=== PATIENT | male | born 1960 | race African-American/Black ===

== ENCOUNTER 2023-06-08 13:14 | Inpatient (IN) | payer MEDICAID ==
[~2023-06-08] VITALS: Ht 175.3 cm; Wt 87.1 kg
[2023-06-08] VITALS (9 sets, daily range): BP systolic 125–181; BP diastolic 51–92; PULSE 80–114; RESP 16–24; TEMP 98.3–98.4; O2SAT 97–100
[~2023-06-08 13:14] MED LIST: FURO-572 PO
[2023-06-08] MEDS ORDERED: LORazepam 2 MG/ML VIAL ONE (13:51)
[2023-06-08] MEDS: LORazepam 2 MG/ML VIAL IM ONE (14:10)
[2023-06-08] MEDS: NACL 0.9% 1,000 ML IV ONE ×2 (15:01→15:50)
[2023-06-08 15:10] LABS: HEMOGLOBIN 13.1 g/dL (12.0-18.0); MEAN CORPUSCULAR HEMOGLOBIN 31 pg (27-31); MEAN CORPUSCULAR HGB CONC 33 g/dL (33-37); MEAN CORPUSCULAR VOLUME 93.5 fL (80-94); PLATELET COUNT (AUTO) 309 K/uL (140-450); RED BLOOD CELL COUNT(AUTO) 4.28 MIL/uL (4.20-6.10); RED CELL DISTRIBUTION WIDTH 15.7 % (11.6-13.7); WHITE BLOOD COUNT (AUTO) 15.1 K/uL (4.8-10.8)
[2023-06-08] MEDS: LORazepam 2 MG/ML VIAL IVP ONE ×2 (15:19→15:43)
[2023-06-08] MEDS: ACETAMINOPHEN 650 MG SUPP RC ONE (15:22)
[2023-06-08] MEDS ORDERED: PROPOFOL 1000 MG/100 ML PREMIX 100 ML IV ONE (15:41)
[2023-06-08 15:44] LABS: ANION GAP 13.9 (8-16); CARBON DIOXIDE 27.7 mmol/L (21-32); CREATININE 1.4 mg/dL (0.6-1.3); POTASSIUM 5.6 mmol/L (3.5-5.1)
[2023-06-08] MEDS ORDERED: INTUBATION KIT MC ONE (15:45)
[2023-06-08] MEDS ORDERED: ETOMIDATE 20 MG/10 ML VIAL IVP ONE (15:48)
[2023-06-08] MEDS ORDERED: ROCURONIUM 50 MG/5 ML VIAL IV ONE (15:48)
[2023-06-08] MEDS: PROPOFOL 1000 MG/100 ML PREMIX 100 ML IV ONE (16:00)
[2023-06-08 16:01] LABS: LYMPHOCYTES % (MANUAL) 3 % (20-46); MONOCYTES % (MANUAL) 2 % (5-12)
[2023-06-08 16:02] LABS: PLATELET ESTIMATE ADEQUATE
[2023-06-08 16:11] LABS: FREE T4 (FREE THYROXINE) 0.36 ng/dL (0.76-1.46); THYROID STIMULATING HORMONE 25.08 uIU/mL (0.34-3.74)
[2023-06-08] MEDS: VANCOMYCIN 1,000 MG in DEXTROSE 5% 250 ML IV ONE (17:00)
[2023-06-08 17:09] LABS: ALANINE AMINOTRANSFERASE 36 U/L (12-78); ALBUMIN 3.8 g/dL (3.4-5.0); ALCOHOL, BLOOD < 3 mg/dL (<10); ALKALINE PHOSPHATASE 55 U/L (50-136); ASPARTATE AMINOTRANSFERASE 35 U/L (15-37); BILIRUBIN,DIRECT 0.1 mg/dL (0.0-0.3); CREATINE KINASE, TOTAL 402 U/L (39-308); TOTAL BILIRUBIN 0.5 mg/dL (0.0-1.0); TOTAL PROTEIN, SERUM 7.9 g/dL (6.4-8.2)
[2023-06-08 17:11] LABS: SALICYLATE < 2.8 mg/dL (2.8-20.0)
[2023-06-08 17:12] LABS: ACETAMINOPHEN < 0.5 ug/ml (10-30)
[2023-06-08 17:31] LABS: APPEARANCE,URINE CLEAR (CLEAR); BILIRUBIN,URINE NEGATIVE (NEGATIVE); BLOOD, URINE TRACE-I (NEGATIVE); COLOR,URINE YELLOW (YELLOW); LEUKOCYTE ESTERASE ,URINE NEGATIVE (NEGATIVE); NITRITE, URINE NEGATIVE (NEGATIVE); PROTEIN,URINE TRACE (NEGATIVE); UGLUCOSE 1+ (NEGATIVE); UROBILINOGEN,URINE 0.2 EU/dL (0.2 - 1)
[2023-06-08 17:38] LABS: AMPHETAMINE, URINE NEGATIVE ng/ml (NEG <=1000); BARBITURATE, URINE NEGATIVE ng/ml (NEG <=200); BENZODIAZEPINE, URINE NEGATIVE ng/mL (NEG <=200); CANNABINOID, URINE NEGATIVE ng/mL (NEG <=50); COCAINE, URINE NEGATIVE ng/mL (NEG <=300); OPIATE, URINE NEGATIVE ng/mL (NEG <=2000); PHENCYCLIDINE SCREEN,URINE NEGATIVE ng/mL (NEG <=25)
[2023-06-08 17:44] LABS: BACTERIA,URINE None Seen /HPF (None Seen); MUCUS,URINE None Seen /LPF (None Seen); RBC,URINE 0-5 /HPF (0-5); SQUAMOUS EPITHELIAL CELL,UR 0-3 (FEW) /LPF (0-3 (FEW)); TRICHOMONAS,URINE None Seen /HPF (None Seen); WBC,URINE 0-5 /HPF (0-5); YEAST,URINE None Seen /HPF (None Seen)
[2023-06-08] MEDS: ROCURONIUM 50 MG/5 ML VIAL IV ONE (18:07)
[2023-06-08] MEDS: ETOMIDATE 20 MG/10 ML VIAL IVP ONE (18:08)
[2023-06-08] MEDS ORDERED: ONDANSETRON 4 MG/2 ML VIAL IVP PRN (18:25)
[2023-06-08] MEDS ORDERED: HYDROcodone/APAP 5/325 MG 1 TAB TAB PO PRN (18:25)
[2023-06-08] MEDS ORDERED: VANCOMYCIN PER PHARMACY MC SCH (18:30)
[2023-06-08] MEDS ORDERED: CALCIUM GLUCONATE 10% 1,000 MG in NACL 0.9% 50 ML IV SCH (18:35)
[2023-06-08] MEDS ORDERED: cefTRIAXone 1,000 MG VIAL ONE (18:40)
[2023-06-08] MEDS ORDERED: CALCIUM GLUC 1 GM/50 mL NS BAG 50 ML IV SCH (18:40)
[2023-06-08] MEDS ORDERED: VANCOMYCIN 1,000 MG VIAL ONE (18:53)
[2023-06-08] MEDS: NACL 0.9% 1,000 ML IV SCH (20:45)
[2023-06-08 20:54] LABS: BLOOD GAS PH 7.419 (7.35-7.45)
[2023-06-08 20:55] LABS: BLOOD GAS BASE EXCESS -1.1 mmol/L (-2.0-2.0); BLOOD GAS O2 SAT% 99.3 % (92.0-98.5); BLOOD GAS PCO2 36.4 mmHg (35-45); BLOOD GAS PO2 268.8 mmHg (75-100)
[2023-06-09] VITALS (32 sets, daily range): BP systolic 76–162; BP diastolic 42–113; PULSE 69–113; RESP 16–23; TEMP 98–100.2; O2SAT 97–100
[2023-06-09] MEDS: PIPERACILLIN/TAZOBACTAM 3.375 GM in DEXTROSE 5% 50 ML IV SCH (01:21)
[2023-06-09 05:52] LABS: ANION GAP 15.7 (8-16); CALCIUM 11.4 mg/dL (8.5-10.1); CARBON DIOXIDE 25.2 mmol/L (21-32); CREATININE 1.2 mg/dL (0.6-1.3); POTASSIUM 4.9 mmol/L (3.5-5.1); TOTAL BILIRUBIN 0.8 mg/dL (0.0-1.0); TOTAL PROTEIN, SERUM 7.2 g/dL (6.4-8.2)
[2023-06-09 06:06] LABS: BASOPHILS # (AUTO) 0.1 K/uL (0.00-0.22); BASOPHILS % (AUTO) 0.3 % (0.0-2.0); HEMATOCRIT 34.3 % (36-52); HEMOGLOBIN 11.3 g/dL (12.0-18.0); LYMPHOCYTES # (AUTO) 0.7 K/uL (2.0-11.5); LYMPHOCYTES % (AUTO) 3.6 % (20.5-51.1); MEAN CORPUSCULAR HEMOGLOBIN 30 pg (27-31); MEAN CORPUSCULAR HGB CONC 33 g/dL (33-37); MEAN CORPUSCULAR VOLUME 91.9 fL (80-94); MONOCYTES # (AUTO) 1.2 K/uL (0.8-1.0); MONOCYTES % (AUTO) 6.1 % (1.7-9.3); NEUTROPHILS # (AUTO) 17.6 K/uL (1.8-7.7); PLATELET COUNT (AUTO) 299 K/uL (140-450); RED BLOOD CELL COUNT(AUTO) 3.73 MIL/uL (4.20-6.10); RED CELL DISTRIBUTION WIDTH 15.7 % (11.6-13.7); WHITE BLOOD COUNT (AUTO) 19.5 K/uL (4.8-10.8)
[2023-06-09 06:29] LABS: MAGNESIUM 1.6 mg/dL (1.8-2.4); PHOSPHORUS 2.3 mg/dL (2.5-4.9)
[2023-06-09] MEDS: PROPOFOL 1000 MG/100 ML PREMIX 100 ML IV PRN (07:16)
[2023-06-09] MEDS: DOCUSATE 100 MG/10 ML UDC NG SCH (09:10)
[2023-06-09] MEDS: VANCOMYCIN 1,000 MG in DEXTROSE 5% 250 ML IV SCH (09:11)
[2023-06-09] MEDS ORDERED: ROCURONIUM 50 MG/5 ML VIAL IV ONE (10:12)
[2023-06-09] MEDS ORDERED: ETOMIDATE 20 MG/10 ML VIAL IVP ONE (10:12)
[2023-06-09] MEDS: cefTRIAXone 2,000 MG in DEXTROSE 5% 100 ML IV SCH (11:41)
[2023-06-09] MEDS: DEXMEDETOMIDINE HCL 400 MCG in NACL 0.9% 96 ML IV PRN (11:43)
[2023-06-09] MEDS: DEXAMETHASONE 10 MG/ML VIAL IVP SCH (11:44)
[2023-06-09 11:51] LABS: INR 1.08 (0.8-1.2); PARTIAL THROMBOPLASTIN TIME 38.6 secs (22-35.6); PROTHROMBIN TIME 11.3 secs (10.8-13.4)
[2023-06-09] MEDS: LIDOCAINE MPF 1% 0 ML ONE (12:57)
[2023-06-09] MEDS: MAG SULF 2000 MG/WATER PREMIX 50 ML IV SCH (13:08)
[2023-06-09] MEDS: LIDOCAINE MPF 1% 10 MG/ML VIAL INJ SCH (14:00)
[2023-06-09] MEDS: ACETAMINOPHEN 325 MG TAB PO PRN (15:53)
[2023-06-09] MEDS: NOREPINEPHRINE 4 MG in DEXTROSE 5% 250 ML IV PRN (17:13)
[2023-06-09 20:21] LABS: CSF GLUCOSE 38 mg/dL (40-70)
[2023-06-09 20:41] LABS: CSF PROTEIN 422.4 mg/dL (15-45)
[2023-06-09 21:05] LABS: CSF APPEARANCE TURBID (CLEAR); CSF RED BLOOD CELL COUNT 914 /cumm (0-0); CSF VOLUME 12.5 mL; CSF WHITE BLOOD CELL COUNT 732 /cumm (0-5)
[2023-06-09 21:26] LABS: CSF RED BLOOD CELL COUNT TUBE4 693 /cumm (0-0); CSF WHITE BLOOD CELL COUNT T#4 1226 /cumm (0-5)
[2023-06-09 21:27] LABS: CSF COLOR COLORLESS (COLORLESS)
[2023-06-10] VITALS (32 sets, daily range): BP systolic 84–146; BP diastolic 57–90; PULSE 66–107; RESP 13–24; TEMP 98.2–100; O2SAT 98–100
[2023-06-10 01:23] LABS: LACTIC ACID 1.7 mmol/L (0.4-2.0)
[2023-06-10] MEDS: LEVOTHYROXINE 0.05 MG TAB PO SCH (06:15)
[2023-06-10] MEDS ORDERED: LEVOTHYROXINE 0.05 MG TAB PO SCH (06:30)
[2023-06-10 09:00] LABS: ALBUMIN 2.1 g/dL (3.4-5.0); ANION GAP 12.7 (8-16); CALCIUM 10.6 mg/dL (8.5-10.1); CARBON DIOXIDE 22.8 mmol/L (21-32); CREATININE 1.2 mg/dL (0.6-1.3); POTASSIUM 4.5 mmol/L (3.5-5.1); TOTAL BILIRUBIN 0.4 mg/dL (0.0-1.0); TOTAL PROTEIN, SERUM 6.4 g/dL (6.4-8.2)
[2023-06-10] MEDS: LORazepam 2 MG/ML VIAL IVP PRN (09:33)
[2023-06-10] MEDS: LORazepam 2 MG/ML VIAL ONE ×2 (09:33→18:07)
[2023-06-10] MEDS: QUEtiapine FUMARATE 100 MG TAB NG SCH (09:52)
[2023-06-10] MEDS: PANTOPRAZOLE 40 MG INJ VIAL IVP SCH (09:52)
[2023-06-10] MEDS: QUEtiapine FUMARATE 100 MG TAB ONE (09:55)
[2023-06-10] MEDS: VANCOMYCIN 1.25GM PREMIX 250 ML IV SCH (10:00)
[2023-06-10 11:21] LABS: MAGNESIUM 2.2 mg/dL (1.8-2.4); PHOSPHORUS 2.6 mg/dL (2.5-4.9)
[2023-06-10 14:37] LABS: EOSINOPHILS % (AUTO) 0.1 % (0.0-4.0); HEMATOCRIT 33.9 % (36-52); HEMOGLOBIN 11.2 g/dL (12.0-18.0); LYMPHOCYTES # (AUTO) 0.4 K/uL (2.0-11.5); LYMPHOCYTES % (AUTO) 2.6 % (20.5-51.1); MEAN CORPUSCULAR HEMOGLOBIN 30 pg (27-31); MEAN CORPUSCULAR HGB CONC 33 g/dL (33-37); MEAN CORPUSCULAR VOLUME 91.5 fL (80-94); MONOCYTES # (AUTO) 0.6 K/uL (0.8-1.0); MONOCYTES % (AUTO) 3.2 % (1.7-9.3); NEUTROPHILS # (AUTO) 16.1 K/uL (1.8-7.7); NEUTROPHILS % (AUTO) 94.1 % (42.2-75.2); PLATELET COUNT (AUTO) 261 K/uL (140-450); RED CELL DISTRIBUTION WIDTH 15.9 % (11.6-13.7); WHITE BLOOD COUNT (AUTO) 17.1 K/uL (4.8-10.8)
[2023-06-10 14:51] LABS: ALBUMIN 2.2 g/dL (3.4-5.0); ANION GAP 12.5 (8-16); CALCIUM 10.9 mg/dL (8.5-10.1); CARBON DIOXIDE 25.1 mmol/L (21-32); CREATININE 1.3 mg/dL (0.6-1.3); MAGNESIUM 2.1 mg/dL (1.8-2.4); PHOSPHORUS 2.3 mg/dL (2.5-4.9); POTASSIUM 4.6 mmol/L (3.5-5.1); TOTAL BILIRUBIN 0.4 mg/dL (0.0-1.0); TOTAL PROTEIN, SERUM 6.6 g/dL (6.4-8.2)
[2023-06-11] VITALS (35 sets, daily range): BP systolic 96–150; BP diastolic 63–96; PULSE 57–79; RESP 13–27; TEMP 97–98.2; O2SAT 97–100
[2023-06-11 05:58] LABS: BASOPHILS % (AUTO) 0.1 % (0.0-2.0); EOSINOPHILS % (AUTO) 0.2 % (0.0-4.0); HEMATOCRIT 33.7 % (36-52); LYMPHOCYTES # (AUTO) 0.5 K/uL (2.0-11.5); LYMPHOCYTES % (AUTO) 3.6 % (20.5-51.1); MEAN CORPUSCULAR HEMOGLOBIN 30 pg (27-31); MEAN CORPUSCULAR HGB CONC 33 g/dL (33-37); MEAN CORPUSCULAR VOLUME 92.4 fL (80-94); MONOCYTES # (AUTO) 0.4 K/uL (0.8-1.0); MONOCYTES % (AUTO) 2.8 % (1.7-9.3); NEUTROPHILS # (AUTO) 13.8 K/uL (1.8-7.7); NEUTROPHILS % (AUTO) 93.3 % (42.2-75.2); PLATELET COUNT (AUTO) 271 K/uL (140-450); RED BLOOD CELL COUNT(AUTO) 3.65 MIL/uL (4.20-6.10); RED CELL DISTRIBUTION WIDTH 15.7 % (11.6-13.7); WHITE BLOOD COUNT (AUTO) 14.8 K/uL (4.8-10.8)
[2023-06-11 06:11] LABS: MAGNESIUM 2.3 mg/dL (1.8-2.4); PHOSPHORUS 2.7 mg/dL (2.5-4.9)
[2023-06-11 06:13] LABS: ANION GAP 13.7 (8-16); CARBON DIOXIDE 23.9 mmol/L (21-32); CREATININE 1.2 mg/dL (0.6-1.3); POTASSIUM 4.6 mmol/L (3.5-5.1); TOTAL BILIRUBIN 0.3 mg/dL (0.0-1.0); TOTAL PROTEIN, SERUM 6.3 g/dL (6.4-8.2)
[2023-06-11] MEDS: LORazepam 2 MG/ML VIAL ONE ×2 (08:32→11:59)
[2023-06-11] MEDS: QUEtiapine FUMARATE 100 MG TAB ONE (09:15)
[2023-06-11] MEDS: CRUSHER, PILL MC ONE (09:15)
[2023-06-11] MEDS ORDERED: DEXTROSE 50% 50 ML SYR IVP PRN (10:05)
[2023-06-11] MEDS: INSULIN LISPRO SLIDING SCALE 100 UNITS/ML VIAL SUBQ PRN (12:25)
[2023-06-11] MEDS: BLOOD GLUCOSE MONITORING 1 DEV DEV FS SCH (12:26)
[2023-06-12] VITALS (33 sets, daily range): BP systolic 112–168; BP diastolic 77–99; PULSE 50–101; RESP 14–22; TEMP 96.4–97.8; O2SAT 92–100
[2023-06-12 05:45] LABS: MAGNESIUM 2.4 mg/dL (1.8-2.4); PHOSPHORUS 2.8 mg/dL (2.5-4.9)
[2023-06-12 05:52] LABS: BASOPHILS % (AUTO) 0.2 % (0.0-2.0); HEMATOCRIT 35.8 % (36-52); HEMOGLOBIN 11.7 g/dL (12.0-18.0); LYMPHOCYTES # (AUTO) 0.5 K/uL (2.0-11.5); LYMPHOCYTES % (AUTO) 4.1 % (20.5-51.1); MEAN CORPUSCULAR HEMOGLOBIN 30 pg (27-31); MEAN CORPUSCULAR HGB CONC 33 g/dL (33-37); MEAN CORPUSCULAR VOLUME 92.8 fL (80-94); MONOCYTES # (AUTO) 0.3 K/uL (0.8-1.0); MONOCYTES % (AUTO) 2.2 % (1.7-9.3); NEUTROPHILS # (AUTO) 11.8 K/uL (1.8-7.7); NEUTROPHILS % (AUTO) 93.5 % (42.2-75.2); PLATELET COUNT (AUTO) 273 K/uL (140-450); RED BLOOD CELL COUNT(AUTO) 3.86 MIL/uL (4.20-6.10); RED CELL DISTRIBUTION WIDTH 15.3 % (11.6-13.7); WHITE BLOOD COUNT (AUTO) 12.7 K/uL (4.8-10.8)
[2023-06-12 06:02] LABS: ALBUMIN 2.1 g/dL (3.4-5.0); ANION GAP 11.8 (8-16); CALCIUM 11.7 mg/dL (8.5-10.1); CARBON DIOXIDE 24.6 mmol/L (21-32); CREATININE 1.2 mg/dL (0.6-1.3); POTASSIUM 4.4 mmol/L (3.5-5.1); TOTAL BILIRUBIN 0.2 mg/dL (0.0-1.0); TOTAL PROTEIN, SERUM 6.3 g/dL (6.4-8.2)
[2023-06-12] MEDS: NACL 0.45% 1,000 ML IV SCH (22:40)
[2023-06-13] VITALS (30 sets, daily range): BP systolic 127–169; BP diastolic 68–104; PULSE 49–104; RESP 14–22; TEMP 96.8–98.6; O2SAT 95–100
[2023-06-13 05:36] LABS: HEMATOCRIT 36.7 % (36-52); LYMPHOCYTES # (AUTO) 0.4 K/uL (2.0-11.5); MEAN CORPUSCULAR HEMOGLOBIN 30 pg (27-31); MEAN CORPUSCULAR HGB CONC 33 g/dL (33-37); MEAN CORPUSCULAR VOLUME 92.5 fL (80-94); MONOCYTES # (AUTO) 0.3 K/uL (0.8-1.0); MONOCYTES % (AUTO) 2.5 % (1.7-9.3); NEUTROPHILS # (AUTO) 11.3 K/uL (1.8-7.7); NEUTROPHILS % (AUTO) 94.5 % (42.2-75.2); PLATELET COUNT (AUTO) 280 K/uL (140-450); RED BLOOD CELL COUNT(AUTO) 3.96 MIL/uL (4.20-6.10); RED CELL DISTRIBUTION WIDTH 15.5 % (11.6-13.7)
[2023-06-13 06:20] LABS: ALBUMIN 2.1 g/dL (3.4-5.0); ANION GAP 12.2 (8-16); CARBON DIOXIDE 24.1 mmol/L (21-32); CREATININE 1.2 mg/dL (0.6-1.3); MAGNESIUM 2.6 mg/dL (1.8-2.4); PHOSPHORUS 3.2 mg/dL (2.5-4.9); POTASSIUM 4.3 mmol/L (3.5-5.1); TOTAL BILIRUBIN 0.1 mg/dL (0.0-1.0); TOTAL PROTEIN, SERUM 6.3 g/dL (6.4-8.2)
[2023-06-13] MEDS: BLOOD GLUCOSE MONITORING 1 DEV DEV FS SCH (12:38)
[2023-06-13] MEDS: DEXTROSE 5% 1,000 ML IV SCH (12:55)
[2023-06-13] MEDS: DEXT 5% / NACL 0.45% 1,000 ML IV SCH (22:28)
[2023-06-14] VITALS (26 sets, daily range): BP systolic 139–186; BP diastolic 45–104; PULSE 51–102; RESP 11–20; TEMP 97.2–98.7; O2SAT 92–100
[2023-06-14 06:16] LABS: ALBUMIN 2.2 g/dL (3.4-5.0); ANION GAP 13.6 (8-16); CARBON DIOXIDE 24.2 mmol/L (21-32); CREATININE 1.2 mg/dL (0.6-1.3); POTASSIUM 3.8 mmol/L (3.5-5.1); TOTAL BILIRUBIN 0.3 mg/dL (0.0-1.0); TOTAL PROTEIN, SERUM 6.4 g/dL (6.4-8.2)
[2023-06-14 06:26] LABS: MAGNESIUM 2.5 mg/dL (1.8-2.4); PHOSPHORUS 2.9 mg/dL (2.5-4.9)
[2023-06-14 07:05] LABS: CALCIUM 12.1 mg/dL (8.5-10.1)
[2023-06-14 07:37] LABS: BASOPHILS % (AUTO) 0.1 % (0.0-2.0); HEMATOCRIT 38.2 % (36-52); HEMOGLOBIN 12.4 g/dL (12.0-18.0); LYMPHOCYTES # (AUTO) 0.5 K/uL (2.0-11.5); MEAN CORPUSCULAR HEMOGLOBIN 30 pg (27-31); MEAN CORPUSCULAR HGB CONC 33 g/dL (33-37); MEAN CORPUSCULAR VOLUME 92.4 fL (80-94); MONOCYTES # (AUTO) 0.5 K/uL (0.8-1.0); MONOCYTES % (AUTO) 2.9 % (1.7-9.3); NEUTROPHILS # (AUTO) 16.4 K/uL (1.8-7.7); PLATELET COUNT (AUTO) 305 K/uL (140-450); RED BLOOD CELL COUNT(AUTO) 4.14 MIL/uL (4.20-6.10); RED CELL DISTRIBUTION WIDTH 15.8 % (11.6-13.7); WHITE BLOOD COUNT (AUTO) 17.4 K/uL (4.8-10.8)
[2023-06-14] MEDS: DEXTROSE 5% 1,000 ML IV SCH (14:18)
[2023-06-15] VITALS (10 sets, daily range): BP systolic 139–160; BP diastolic 81–99; PULSE 61–109; RESP 18–20; TEMP 96.9–98.2; O2SAT 75–100
[2023-06-15 06:52] LABS: HEMATOCRIT 36.5 % (36-52); HEMOGLOBIN 12.1 g/dL (12.0-18.0); LYMPHOCYTES # (AUTO) 0.7 K/uL (2.0-11.5); LYMPHOCYTES % (AUTO) 3.6 % (20.5-51.1); MEAN CORPUSCULAR HEMOGLOBIN 30 pg (27-31); MEAN CORPUSCULAR HGB CONC 33 g/dL (33-37); MEAN CORPUSCULAR VOLUME 91.4 fL (80-94); MONOCYTES # (AUTO) 0.5 K/uL (0.8-1.0); MONOCYTES % (AUTO) 2.6 % (1.7-9.3); NEUTROPHILS # (AUTO) 17.2 K/uL (1.8-7.7); NEUTROPHILS % (AUTO) 93.8 % (42.2-75.2); PLATELET COUNT (AUTO) 331 K/uL (140-450); RED BLOOD CELL COUNT(AUTO) 3.99 MIL/uL (4.20-6.10); RED CELL DISTRIBUTION WIDTH 15.9 % (11.6-13.7); WHITE BLOOD COUNT (AUTO) 18.3 K/uL (4.8-10.8)
[2023-06-15 07:16] LABS: MAGNESIUM 2.1 mg/dL (1.8-2.4); PHOSPHORUS 2.6 mg/dL (2.5-4.9)
[2023-06-15 07:19] LABS: ANION GAP 10.4 (8-16); CALCIUM 11.9 mg/dL (8.5-10.1); CARBON DIOXIDE 25.3 mmol/L (21-32); CREATININE 1.1 mg/dL (0.6-1.3); POTASSIUM 3.7 mmol/L (3.5-5.1); TOTAL BILIRUBIN 0.4 mg/dL (0.0-1.0); TOTAL PROTEIN, SERUM 6.4 g/dL (6.4-8.2)
[2023-06-15 07:29] LABS: ALBUMIN 2.5 g/dL (3.4-5.0)
[2023-06-15] MEDS: hydrALAZINE 20 MG/ML VIAL IVP PRN (08:50)
[2023-06-15] MEDS: QUEtiapine FUMARATE 25 MG TAB PO PRN (17:59)
[2023-06-16 04:00] VITALS: BP 139/82; PULSE 78; RESP 18; TEMP 98.2; O2SAT 95
[2023-06-16 05:47] VITALS: BP 153/91; PULSE 69; RESP 18; TEMP 98.2; O2SAT 92
[2023-06-16] MEDS: LORazepam 1 MG TAB PO PRN (06:19)
[2023-06-16 08:00] VITALS: BP 155/83; PULSE 69; PULSE 78; RESP 16; RESP 18; RESP 19; TEMP 97.6; TEMP 98.2; O2SAT 95; O2SAT 96
[2023-06-16] MEDS: LORazepam 2 MG/ML VIAL IM PRN (14:37)
[2023-06-16] MEDS ORDERED: HALOPERIDOL IM 5 MG/ML VIAL IM PRN (14:45)
[2023-06-16] MEDS: FUROSEMIDE 20 MG/2 ML VIAL IVP SCH (16:03)
[2023-06-16 16:05] LABS: BASOPHILS % (AUTO) 0.2 % (0.0-2.0); EOSINOPHILS # (AUTO) 0.2 K/uL (0-0.4); HEMATOCRIT 36.8 % (36-52); HEMOGLOBIN 12.3 g/dL (12.0-18.0); LYMPHOCYTES # (AUTO) 1.4 K/uL (2.0-11.5); LYMPHOCYTES % (AUTO) 17.8 % (20.5-51.1); MEAN CORPUSCULAR HEMOGLOBIN 31 pg (27-31); MEAN CORPUSCULAR HGB CONC 33 g/dL (33-37); MEAN CORPUSCULAR VOLUME 91.4 fL (80-94); MONOCYTES # (AUTO) 0.5 K/uL (0.8-1.0); MONOCYTES % (AUTO) 6.9 % (1.7-9.3); NEUTROPHILS # (AUTO) 5.6 K/uL (1.8-7.7); NEUTROPHILS % (AUTO) 73.1 % (42.2-75.2); PLATELET COUNT (AUTO) 336 K/uL (140-450); RED BLOOD CELL COUNT(AUTO) 4.03 MIL/uL (4.20-6.10); RED CELL DISTRIBUTION WIDTH 15.6 % (11.6-13.7); WHITE BLOOD COUNT (AUTO) 7.6 K/uL (4.8-10.8)
[2023-06-16 16:18] LABS: ALBUMIN 2.6 g/dL (3.4-5.0); ANION GAP 12.4 (8-16); CALCIUM 11.2 mg/dL (8.5-10.1); CARBON DIOXIDE 24.2 mmol/L (21-32); CREATININE 0.9 mg/dL (0.6-1.3); POTASSIUM 3.6 mmol/L (3.5-5.1); TOTAL BILIRUBIN 0.4 mg/dL (0.0-1.0); TOTAL PROTEIN, SERUM 6.3 g/dL (6.4-8.2)
[2023-06-16 16:30] LABS: MAGNESIUM 2.2 mg/dL (1.8-2.4); PHOSPHORUS 2.7 mg/dL (2.5-4.9)
[2023-06-16 20:00] VITALS: BP 148/80; PULSE 83; RESP 18; RESP 20; TEMP 97.2; O2SAT 95; O2SAT 97
[2023-06-17 00:35] VITALS: PULSE 83; RESP 20; O2SAT 97
[2023-06-17 04:00] VITALS: BP 146/74; PULSE 70; RESP 18; TEMP 98.8; O2SAT 96
[2023-06-17 08:00] VITALS: PULSE 89; RESP 16; RESP 18; TEMP 98.9; O2SAT 97
[2023-06-17 08:36] LABS: BASOPHILS % (AUTO) 0.3 % (0.0-2.0); EOSINOPHILS # (AUTO) 0.3 K/uL (0-0.4); EOSINOPHILS % (AUTO) 3.6 % (0.0-4.0); HEMATOCRIT 38.9 % (36-52); HEMOGLOBIN 12.7 g/dL (12.0-18.0); LYMPHOCYTES # (AUTO) 1.2 K/uL (2.0-11.5); LYMPHOCYTES % (AUTO) 16.8 % (20.5-51.1); MEAN CORPUSCULAR HEMOGLOBIN 30 pg (27-31); MEAN CORPUSCULAR HGB CONC 33 g/dL (33-37); MEAN CORPUSCULAR VOLUME 91.4 fL (80-94); MONOCYTES # (AUTO) 0.5 K/uL (0.8-1.0); MONOCYTES % (AUTO) 6.3 % (1.7-9.3); NEUTROPHILS # (AUTO) 5.4 K/uL (1.8-7.7); PLATELET COUNT (AUTO) 344 K/uL (140-450); RED BLOOD CELL COUNT(AUTO) 4.25 MIL/uL (4.20-6.10); RED CELL DISTRIBUTION WIDTH 15.8 % (11.6-13.7); WHITE BLOOD COUNT (AUTO) 7.4 K/uL (4.8-10.8)
[2023-06-17 09:07] LABS: ALBUMIN 2.5 g/dL (3.4-5.0); ANION GAP 10.6 (8-16); CALCIUM 11.2 mg/dL (8.5-10.1); CARBON DIOXIDE 26.1 mmol/L (21-32); CREATININE 0.9 mg/dL (0.6-1.3); MAGNESIUM 2.2 mg/dL (1.8-2.4); PHOSPHORUS 2.2 mg/dL (2.5-4.9); POTASSIUM 3.7 mmol/L (3.5-5.1); TOTAL BILIRUBIN 0.5 mg/dL (0.0-1.0); TOTAL PROTEIN, SERUM 6.3 g/dL (6.4-8.2)
[2023-06-17 12:00] VITALS: BP 143/72; PULSE 75; RESP 18; TEMP 98.4; O2SAT 99
[2023-06-17 12:08] LABS: T. PALLIDUM (VDRL) CSF Non Reactive (Non Rea:<1:1)
[2023-06-17 20:00] VITALS: BP 134/69; PULSE 102; RESP 18; TEMP 97.9; O2SAT 96
[2023-06-18 04:00] VITALS: BP 138/65; PULSE 90; RESP 18; TEMP 97.5; O2SAT 96
[2023-06-18 07:17] LABS: MAGNESIUM 2.1 mg/dL (1.8-2.4); PHOSPHORUS 2.2 mg/dL (2.5-4.9)
[2023-06-18 07:51] LABS: ALBUMIN 2.5 g/dL (3.4-5.0); ANION GAP 10.3 (8-16); CALCIUM 11.1 mg/dL (8.5-10.1); CARBON DIOXIDE 24.6 mmol/L (21-32); CREATININE 0.9 mg/dL (0.6-1.3); POTASSIUM 3.9 mmol/L (3.5-5.1); TOTAL BILIRUBIN 0.4 mg/dL (0.0-1.0); TOTAL PROTEIN, SERUM 6.3 g/dL (6.4-8.2)
[2023-06-18 08:00] VITALS: BP 126/78; PULSE 104; PULSE 89; RESP 16; RESP 18; RESP 20; TEMP 98; TEMP 98.9; O2SAT 97
[2023-06-18 08:10] LABS: BASOPHILS % (AUTO) 0.2 % (0.0-2.0); EOSINOPHILS # (AUTO) 0.3 K/uL (0-0.4); EOSINOPHILS % (AUTO) 3.5 % (0.0-4.0); HEMATOCRIT 39.4 % (36-52); HEMOGLOBIN 13.2 g/dL (12.0-18.0); LYMPHOCYTES # (AUTO) 1.6 K/uL (2.0-11.5); LYMPHOCYTES % (AUTO) 19.5 % (20.5-51.1); MEAN CORPUSCULAR HEMOGLOBIN 30 pg (27-31); MEAN CORPUSCULAR HGB CONC 33 g/dL (33-37); MEAN CORPUSCULAR VOLUME 91.1 fL (80-94); MONOCYTES # (AUTO) 0.7 K/uL (0.8-1.0); MONOCYTES % (AUTO) 8.1 % (1.7-9.3); NEUTROPHILS # (AUTO) 5.7 K/uL (1.8-7.7); NEUTROPHILS % (AUTO) 68.7 % (42.2-75.2); PLATELET COUNT (AUTO) 332 K/uL (140-450); RED BLOOD CELL COUNT(AUTO) 4.33 MIL/uL (4.20-6.10); RED CELL DISTRIBUTION WIDTH 15.5 % (11.6-13.7); WHITE BLOOD COUNT (AUTO) 8.2 K/uL (4.8-10.8)
[2023-06-18 16:57] LABS: PARATHYROID CALCIUM 11.3 mg/d/L (8.7-10.2)
[2023-06-19 11:19] LABS: MUMPS VIRUS IGG ANTIBODY CSF 21.1 AU/mL (<=10.9); MUMPS VIRUS IGM ANTIBODY CSF 0.71 IV (<=0.89); RUBEOLA (MEASLES) IGG CSF >300 AU/mL (<=29.9); RUBEOLA (MEASLES) IGM CSF 0.22 AU/mL (0.00 - 0.79)
[2023-06-19 11:20] LABS: HSV TYPE 1/2 COMBINED IGM CSF 0.13 IV (<=0.89); VARICELLA IGG ANTIBODY CSF 262.8 IV (<=165.9)
[2023-06-19 11:21] LABS: HSV 1/2 COMBINED AB IGG CSF 17.72 IV (<=0.89)
[2023-06-19 11:25] LABS: WEST NILE VIRUS IGG CSF 0.32 (<=1.29)
== END 2023-06-18 11:52 | disposition left against medical advice (07) | DRG 720 ==
LOC: MED 13:14 → MIC 18:35 → MTU 06-14 12:10
PROVIDERS: ADMIT Student in an Organized Health Care Education/Training Program; ATTEND Student in an Organized Health Care Education/Training Program
PROC: 5A1955Z Respiratory Ventilation, Greater than 96 Consecutive Hours (ICD-10-PCS; principal; 2023-06-08)
PROC: 0BH17EZ Insertion of Endotracheal Airway into Trachea, Via Natural or Artificial Opening (ICD-10-PCS; 2023-06-08)
PROC: 009U3ZX Drainage of Spinal Canal, Percutaneous Approach, Diagnostic (ICD-10-PCS; 2023-06-09)
PROC: B01B1ZZ Fluoroscopy of Spinal Cord using Low Osmolar Contrast (ICD-10-PCS; 2023-06-09)
DX: A41.9 Sepsis, unspecified organism (principal); J96.00 Acute respiratory failure, unspecified whether with hypoxia or hypercapnia; I21.A1 Myocardial infarction type 2; G92.8 Other toxic encephalopathy; G00.1 Pneumococcal meningitis; E11.9 Type 2 diabetes mellitus without complications; J32.4 Chronic pansinusitis; E03.9 Hypothyroidism, unspecified; I10 Essential (primary) hypertension; Z79.899 Other long term (current) drug therapy; Z79.2 Long term (current) use of antibiotics
CPT/HCPCS: 31500; 36415; 36600; 70450; 71045; 77003; 80048; 80053; 80076; 80202; 80305; 81001; 82140; 82550; 82553; 82803; 82948; 83036; 83605; 83735; 83970; 84100; 84157; 84439; 84443; 84484; 85025; 85610; 85730; 86171; 86592; 86790; 87040; 87081; 87899; 92526; 93005; 94002; 94003; 96361; 96365; 96366; 96367; 96372; 96375; 97110; 97116; 97163-GP; 97530; 99291; 99292; C9113; G0480; G0482; J0360; J0610; J0696; J1100; J1644; J1815; J1940; J2001; J2060; J2543; J2704; J3370; J3372; J3475; J3490; J7060; Q0092; Q9967